=== PATIENT | male | born 1950 | race Caucasian/White ===

== ENCOUNTER 2017-08-19 09:30 | Inpatient (IN) | payer SELFPAY ==
--- NOTE | 2017-08-19 09:55 | EDPHY ---
H & P Stated Complaint: Sent by PCP for evaluation of "enzyme leakage". Time Seen by Provider: 08/19/17 09:55 - Personal History Current Tetanus Diphtheria and Acellular Pertussis (TDAP): Yes - Medical/Surgical History Hx Asthma: No Hx Chronic Respiratory Disease: No Hx Diabetes: No Hx Cardiac Disease: No Hx Renal Disease: No Hx Cirrhosis: No Hx Alcoholism: No Hx HIV/AIDS: No Hx Splenectomy or Spleen Trauma: No Other PMH: Carotid artery DX. Recent "enzyme leakage". - Social History Smoking Status: Former smoker Constitutional: Initial Vital Signs Temperature (C) 37 C 08/19/17 09:37 Heart Rate 74 08/19/17 09:37 Respiratory Rate 18 08/19/17 09:37 Blood Pressure 157/97 H 08/19/17 09:37 O2 Sat (%) 94 08/19/17 09:37 O2 Delivery Mode Room Air Allergies/Adverse Reactions: No Known Allergies Allergy (Unverified 08/19/17 09:41) Home Medications: Medication Instructions Recorded Amlodipine Besylate 08/19/17 Plavix 08/19/17 Medical Decision Making - Diagnostics Imaging: Discussed imaging studies w/ card lacer jacquard Radiologist, I viewed and interpreted images myself ED Course/Re-evaluation: CHIEF COMPLAINT: Elevated BNP and Troponin HISTORY OF PRESENT ILLNESS: The patient is a 67 y/o male with a history of CAD sent here by Dr. Dobson, his dutnua-qc-qds's PCP, for an elevated BNP and Troponin on Tuesday, 3 days ago. While driving to [place] from [place], he began to feel lightheaded, dizzy, and started sweating. On Tuesday, 4 days ago, he was seen at [facility] in [place], [place] and diagnosed with an elevated BNP and Troponin (0.523). They sent him home with an elevated BNP and Troponin. During his follow up visit with Dr. Dobson, she noticed his elevated BNP and Troponin and recommended he present to the ED immediately. However, the patient decided to wait until after Thanksgiving to go to the ED. He has not had any cardiac symptoms since the visit to [facility]. Denies shortness of breath, paresthesias, fever or other pertinent symptoms. REVIEW OF SYSTEMS: A 10 point review of systems was performed and is negative with the exception of the elements mentioned in the history of present illness. PHYSICAL EXAM: HR, BP, O2 Sat, RR. Temp noted General Appearance: Alert, well hydrated, appropriate, and non-toxic appearing. Head: Atraumatic without scalp tenderness or obvious injury Eyes: Pupils equal, round, reactive to light and accommodation, EOMI, no trauma , no injection. Ears: Clear bilaterally, no perforation, normal landmarks Nose: Atraumatic, no rhinorrhea, clear. Throat: Mucus membranes moist. Neck: Supple, nontender, no lymphadenopathy. Respiratory: No retractions, no distress, no wheezes, and no accessory muscle use. Lungs are clear to auscultation bilaterally. Cardiovascular: Regular rate and rhythm, no murmurs, rubs, or gallops. Good capillary refill all extremities. Gastrointestinal: Abdomen is soft, nontender, non-distended, no masses, no rebound, no guarding, no peritoneal signs. Musculoskeletal: Normal active ROM of all extremities, atraumatic. Neurological: Alert, appropriate, and interactive. Non-focal neuro Skin: No rashes, good turgor, no nodules on palpation. Past medical history: Peripheral vascular disease, dyslipidemia, hypertension Past surgical history: Left carotid endarterectomy (2009) Family history: CAD Social history: Family at bedside, visiting from [place], former smoker DIAGNOSTICS/PROCEDURES/CRITICAL CARE TIME: The 12 lead EKG was interpreted by myself sinus rhythm with a rate of 61, no ischemia. See hard copy and/or "tracemaster" electronic copy for interpretation. Echocardiogram: Posterior and inferior wall motion abnormalities I spent a total of 30 minutes of critical care time including but not limited to obtaining history, performing a physical exam, ordering interventions and the bedside monitoring of those interventions, collecting and interpreting tests and discussion with consultants but not including time spent performing procedures. DIFFERENTIAL DIAGNOSIS: The differential diagnosis for the patient's chest pain included but was not limited to myocardial ischemia, pulmonary embolus, chest wall pain, pleural inflammation, and pulmonary infectious causes. MEDICAL DECISION MAKING: The patient is a 67 y/o male with a history of CAD presenting with an elevated BNP and Troponin (0.523) from Tuesday, 4 days ago, after being seen at a hospital in [place], [place]. He went to this hospital after experiencing dizziness and becoming diaphoretic. He is not currently complaining of any cardiac symptoms. 1027: Consulted with Dr. Maiocco, french drawer, who noticed the elevated BNP and Troponin during a follow up visit. She recommended the patient present himself to the ED, however he waited till after Thanksgiving to come to the ED. 1038: Consulted with Dr. Lance, cardiac wine steward/stewardess, who agrees with me that this patient should be admitted for an acute coronary syndrome. The patient should also have an echocardiogram and have his troponin cycled. 1110: Patient's troponin (0.06) is decreasing but is not normal. 1115: Reassessed patient and discussed laboratory and EKG results. I have also informed them of the plan for admission; patient and his family are comfortable with this plan. 1120: Patient has inferior and posterior cardiac wall motion abnormalities on his echo. 1123: Consulted with Dr. Lance regarding the patients labs and echo. The plan to admit is the same; he will catheterize the patient today or tomorrow. 1133: Consulted with hospitalist service, Dr. Brooks accepts admission of this patient. 1151: Consulted with Dr. Brooks regarding the patients admission. - Data Points Laboratory Results: Laboratory Results 08/19/17 10:31 08/19/17 10:31 08/19/17 08/19/17 10:31 10:31 WBC 8.78 10^3/uL 10^3/uL (3.80-9.50) RBC 5.12 10^6/uL 10^6/uL (4.40-6.38) Hgb 16.1 g/dL g/dL (13.7-17.5) Hct 45.4 % % (40.0-51.0) MCV 88.7 fL fL (81.5-99.8) MCH 31.4 pg pg (27.9-34.1) MCHC 35.5 g/dL g/dL (32.4-36.7) RDW 12.9 % % (11.5-15.2) Plt Count 354 10^3/uL 10^3/uL (150-400) MPV 9.2 fL fL (8.7-11.7) Neut % (Auto) 58.6 % % (39.3-74.2) Lymph % (Auto) 29.8 % % (15.0-45.0) [place] % (Auto) 8.5 % % (4.5-13.0) Eos % (Auto) 1.9 % % (0.6-7.6) Baso % (Auto) 0.7 % % (0.3-1.7) Nucleat RBC Rel Count 0.0 % % (0.0-0.2) Absolute Neuts (auto) 5.14 10^3/uL 10^3/uL (1.70-6.50) Absolute Lymphs (auto) 2.62 10^3/uL 10^3/uL (1.00-3.00) Absolute Monos (auto) 0.75 10^3/uL 10^3/uL (0.30-0.80) Absolute Eos (auto) 0.17 10^3/uL 10^3/uL (0.03-0.40) Absolute Basos (auto) 0.06 10^3/uL 10^3/uL (0.02-0.10) Absolute Nucleated RBC 0.00 10^3/uL 10^3/uL (0-0.01) Immature Gran % 0.5 % % (0.0-1.1) Immature Gran # 0.04 10^3/uL 10^3/uL (0.00-0.10) Sodium 141 mEq/L mEq/L (134-144) Potassium 4.3 mEq/L mEq/L (3.5-5.2) Chloride 105 mEq/L mEq/L (97-110) Carbon Dioxide 26 mEq/l mEq/l (22-31) Anion Gap 10 mEq/L mEq/L (8-16) BUN 17 mg/dL mg/dL (7-23) Creatinine 0.9 mg/dL mg/dL (0.7-1.3) Estimated GFR > 60 Glucose 99 mg/dL mg/dL (70-100) Calcium 9.5 mg/dL mg/dL (8.5-10.4) Troponin I 0.058 ng/mL H ng/mL (0.000-0.034) NT-Pro-B Natriuret Pep 1420 pg/mL H pg/mL (0-125) Departure - Departure Disposition: [facility] Clinical Impression: Elevated troponin, Elevated brain natriuretic peptide (BNP) level, Acute coronary syndrome Condition: Fair Report Scribed for: Blue Sadler Report Scribed by: Marybeth Frances Date of Report: 08/19/17 Time of Report: 10:10
--- NOTE | 2017-08-19 10:28 | CPEKG ---
Heart Rate: 61 RR Interval: 984 P-R Interval: 164 QRSD Interval: 80 QT Interval: 424 QTC Interval: 427 P Rowland: 72 QRS Rowland: -50 T Wave Rowland: 92 EKG Severity - ABNORMAL ECG - EKG Impression: SINUS RHYTHM EKG Impression: VENTRICULAR PREMATURE COMPLEX EKG Impression: LEFT ANTERIOR FASCICULAR BLOCK EKG Impression: NONSPECIFIC T ABNORMALITIES, LATERAL LEADS Electronically Signed By: Blue Sadler 19-Aug-2017 14:56:02
[2017-08-19 10:42] LABS: % IMMATURE GRANULYOCYTES 0.5 % (0.0-1.1); ABSOLUTE IMMATURE GRANULOCYTES 0.04 10^3/uL (0.00-0.10); ADD DIFF? NO; ADD MORPH? NO; ADD SCAN? NO; ATYPICAL LYMPHOCYTE FLAG 10 (0-99); FRAGMENT RBC FLAG 0 (0-99); HEMATOCRIT 45.4 % (40.0-51.0); HEMOGLOBIN 16.1 g/dL (13.7-17.5); LEFT SHIFT FLG 0 (0-99); LIPEMIA HEMOLYSIS FLAG 90 (0-99); MEAN CELL HEMOGLOBIN 31.4 pg (27.9-34.1); MEAN CELL HEMOGLOBIN CONCENTR. 35.5 g/dL (32.4-36.7); MEAN CELL VOLUME 88.7 fL (81.5-99.8); MEAN PLATELET VOLUME 9.2 fL (8.7-11.7); PLATELET CLUMPS FLAG 0 (0-99); PLATELET COUNT 354 10^3/uL (150-400); RED BLOOD CELL COUNT 5.12 10^6/uL (4.40-6.38); RED CELL DISTRIBUTION WIDTH 12.9 % (11.5-15.2)
[2017-08-19 10:53] LABS: ANION GAP 10 mEq/L (8-16); CALCIUM 9.5 mg/dL (8.5-10.4); CARBON DIOXIDE 26 mEq/l (22-31); CHLORIDE 105 mEq/L (97-110); CREATININE 0.9 mg/dL (0.7-1.3); GLOMERULAR FILTRATION RATE > 60; GLUCOSE 99 mg/dL (70-100); POTASSIUM 4.3 mEq/L (3.5-5.2); SODIUM 141 mEq/L (134-144)
[2017-08-19 11:04] LABS: TROPONIN I 0.058 ng/mL (0.000-0.034)
[2017-08-19] MEDS ORDERED: ACETAMINOPHEN 325 MG TAB PO PRN (12:20)
[2017-08-19] MEDS ORDERED: ONDANSETRON DISINTEGRATING 4 MG TAB PO PRN (12:20)
[2017-08-19] MEDS ORDERED: ONDANSETRON 4 MG/2 ML VIAL IVP PRN (12:20)
[2017-08-19] MEDS ORDERED: NITROGLYCERIN 0.4 MG BTL SL PRN (12:23)
--- NOTE | 2017-08-19 12:28 | PDGENHP ---
History and Physical - History of Present Illness Drove here from [place] 4 days ago and during the trip began to feel lightheaded and diaphoretic. He stopped the car and had his drove, but they did not go to a hospital. He continued to feel sweaty, but denied chest pain or SOB. No associated nausea. His called EMS and he was transported to [facility]. He had an elevated troponin of 0.523 and an elevated BNP 782 and was told f/u with outpt PCP. He saw his father's PCP, Dr. Dobson, who reviewed his recent hospital records and sent him directly to the ED. However, he opted to wait 2 days and presents today. He continues to deny CP, SOB, nausea, diaphoresis or lightheadedness, though he did feel a bit lightheaded during his blood draw. In the ED, a troponin is 0.05, lower than before. His echo showed wall motion abnormality. Cardiology is consulted and he is admitted to the hospital for further evaluation. History Information - Allergies/Home Medication List Allergies/Adverse Reactions: No Known Allergies Allergy (Unverified 08/19/17 09:41) Home Medications: Clopidogrel Bisulfate [Plavix (*)] 75 mg PO DAILY 08/19/17 [Last Taken 08/18/17] amLODIPine BESYLATE [Norvasc 10 mg (*)] 10 mg PO DAILY 08/19/17 [Last Taken ] I have personally reviewed and updated: family history, medical history, social history, surgical history - Past Medical History hypertension, hyperlipidemia Additional medical history: Echo 2010 nl EF, mild MR - Surgical History Additional surgical history: Left carotid endarterectomy. tonsillectomy - Family History Positive for: CAD, father with history of CAD younger than 55 Additional family history: Father had MN in his 50's - Social History Smoking Status: Former smoker Alcohol Use: Rarely Drug Use: Marijuana Additional social history: , lives in [place], visiting [place]. Retired from [employer]. Uses marijuana daily for aches and pain. Review of Systems Review of Systems: ROS: 10pt was reviewed & negative except for what was stated in HPI & below Physical Exam Physical Exam: Temp Pulse Resp BP Pulse Ox 37 C 60 16 147/87 H 96 08/19/17 09:37 08/19/17 12:12 08/19/17 12:12 08/19/17 12:12 08/19/17 12:12 Constitutional: no apparent distress Eyes: PERRL Ears, Nose, Mouth, Throat: moist mucous membranes Cardiovascular: regular rate and rhythym, no murmur, rub, or gallop Respiratory: no respiratory distress, clear to auscultation Gastrointestinal: normoactive bowel sounds, soft, non-tender abdomen Skin: warm Musculoskeletal: full muscle strength Neurologic: AAOx3 Psychiatric: interacting appropriately Lab Data & Imaging Review 08/19/17 10:31 08/19/17 10:31 WBC 8.78 10^3/uL (3.80-9.50) 08/19/17 10:31 RBC 5.12 10^6/uL (4.40-6.38) 08/19/17 10:31 Hgb 16.1 g/dL (13.7-17.5) 08/19/17 10:31 Hct 45.4 % (40.0-51.0) 08/19/17 10:31 MCV 88.7 fL (81.5-99.8) 08/19/17 10:31 MCH 31.4 pg (27.9-34.1) 08/19/17 10:31 MCHC 35.5 g/dL (32.4-36.7) 08/19/17 10:31 RDW 12.9 % (11.5-15.2) 08/19/17 10:31 Plt Count 354 10^3/uL (150-400) 08/19/17 10:31 MPV 9.2 fL (8.7-11.7) 08/19/17 10:31 Neut % (Auto) 58.6 % (39.3-74.2) 08/19/17 10:31 Lymph % (Auto) 29.8 % (15.0-45.0) 08/19/17 10:31 [place] % (Auto) 8.5 % (4.5-13.0) 08/19/17 10:31 Eos % (Auto) 1.9 % (0.6-7.6) 08/19/17 10:31 Baso % (Auto) 0.7 % (0.3-1.7) 08/19/17 10:31 Nucleat RBC Rel Count 0.0 % (0.0-0.2) 08/19/17 10:31 Absolute Neuts (auto) 5.14 10^3/uL (1.70-6.50) 08/19/17 10:31 Absolute Lymphs (auto) 2.62 10^3/uL (1.00-3.00) 08/19/17 10:31 Absolute Monos (auto) 0.75 10^3/uL (0.30-0.80) 08/19/17 10:31 Absolute Eos (auto) 0.17 10^3/uL (0.03-0.40) 08/19/17 10:31 Absolute Basos (auto) 0.06 10^3/uL (0.02-0.10) 08/19/17 10:31 Absolute Nucleated RBC 0.00 10^3/uL (0-0.01) 08/19/17 10:31 Immature Gran % 0.5 % (0.0-1.1) 08/19/17 10:31 Immature Gran # 0.04 10^3/uL (0.00-0.10) 08/19/17 10:31 Sodium 141 mEq/L (134-144) 08/19/17 10:31 Potassium 4.3 mEq/L (3.5-5.2) 08/19/17 10:31 Chloride 105 mEq/L (97-110) 08/19/17 10:31 Carbon Dioxide 26 mEq/l (22-31) 08/19/17 10:31 Anion Gap 10 mEq/L (8-16) 08/19/17 10:31 BUN 17 mg/dL (7-23) 08/19/17 10:31 Creatinine 0.9 mg/dL (0.7-1.3) 08/19/17 10:31 Estimated GFR > 60 08/19/17 10:31 Glucose 99 mg/dL (70-100) 08/19/17 10:31 Calcium 9.5 mg/dL (8.5-10.4) 08/19/17 10:31 Troponin I 0.058 ng/mL (0.000-0.034) H 08/19/17 10:31 NT-Pro-B Natriuret Pep 1420 pg/mL (0-125) H 08/19/17 10:31 Visualized and Interpreted EKG results: Yes EKG Interpretation: Positive for: normal sinsus rhythm Assessment & Plan Assessment: NSTEMI - This event occurred 4 days ago at which time his trop was 0.52. I reviewed his EKG at that time, which showed some T wave flattening, but no ST elevation. His trop is now down-trending and he is completely asymptomatic, likely at the tail end of his NSTEMI. Discussed with Cards. -Cont plavix -add BB, statin -check lipid status in am -prn ntg, morphine if pain recurs and would repeat EKG stat -NPO at midnight for angiogram in am -cardiology will consult H/O PVD - s/p carotid endarterectomy Hypertension - Favor BB over amlodipine given presumed CAD. Hyperlipidemia - lipid panel in am, start statin given NSTEMI event. Full code DVT PPLX - SCD's for now. Lovenox deferred for am as pt going for angiogram. Dispo - inpt, suspect he'll require >48 hrs hospitalization for ongoing cardiac evaluation in setting of NSTEMI
[2017-08-19 12:53] LABS: INR 1.04 (0.83-1.16); PROTIME(PATIENT) 13.5 SEC (12.0-15.0)
[2017-08-19] MEDS ORDERED: CLOPIDOGREL BISULFATE 75 MG TAB PO SCH (13:09)
--- NOTE | 2017-08-19 13:28 | ECHO ---
[email or web address] [address] [address] Main: [phone] Fax: [email or web address] Echocardiogram Name: JI GIMENEZ MR#: [id number] Study Date: 08/19/2017 Study Time: 11:14 AM Date of : 1950 Age: 67 year(s) Height: 172.7 cm (68 in.) Weight: 74.84 kg (165 lb.) BSA: 1.88 m2 Gender: Male Examination: Echo Indication: Chest Pain Image Quality: Contrast: Requested by: Blue Sadler BP: 124 mmHg/76 mmHg Heart Rate: Rhythm: Indication: Chest Pain Procedure Staff Leather Sprayer: Sofia Todd Reading Physician: Devonte Lance Requesting Provider: Conclusions: Normal size left ventricle. The ejection fraction is estimated to be 50-55 %. LV mid/basal inferolateral and base inferior segments are akinetic.. Trivial mitral valve regurgitation. Mildy calcific NCC of the aortic valve.. Trivial tricuspid valve regurgitation. No pericardial effusion. Measurements: Chambers Valvular Assessment AV/MV Valvular Assessment TV/PV Normal Normal Normal Name Value Range Name Value Range Name Value Range Ao Margarette (MM): 3.4 cm (2.2 cm-3.7 AV Vmax: 0.90 m/s (1 m/s-1.7 cm) m/s) IVSd (2D): 1.0 cm (0.6 cm-1.1 AV maxP mmHg ( - ) cm) MV E Vmax: 0.48 m/s ( - ) LVDd (2D): 5.2 cm (4.2 cm-5.9 MV A Vmax: 0.67 m/s ( - ) cm) MV E/A: 0.72 ( - ) LVDs (2D): 4.3 cm (2.1 cm-4 cm) LVPWd (2D): 1.0 cm (0.6 cm-1 cm) LVEF (BP): 58 % (>=55 %) EF Range: 50-55 % Continued Measurements: Chambers Valvular Assessment AV/MV Name Value Name Value LADs: 3.5 cm MV E/E' Septal: 8.50 Patient: JI GIMENEZ Study Date: 08/19/2017 Page 1 of 2 11:14 AM LADs Lon.1 cm MV E/E' Lateral: 6.00 [place] Area: 12.5 cm2 Findings: Left Ventricle: Normal size left ventricle. The ejection fraction is estimated to be 50-55 %. LV mid/basal inferolateral and base inferior segments are akinetic.. Right Ventricle: Normal size right ventricle. Left Atrium: The left atrium is normal in size. Right Atrium: The right atrium is normal in size. Mitral Valve: The mitral valve is normal in appearance. Trivial mitral valve regurgitation. Aortic Valve: The aortic valve is tri-leaflet. Mildy calcific NCC of the aortic valve.. Tricuspid Valve: The tricuspid valve appears normal. Trivial tricuspid valve regurgitation. Pulmonic Valve: The pulmonic valve is normal in appearance. Trivial to mild pulmonic valve regurgitation. Pericardium: No pericardial effusion. (No Signature Object) Patient: JI GIMENEZ Study Date: 08/19/2017 Page 2 of 2 11:14 AM [id number]
[2017-08-19] MEDS: CLOPIDOGREL BISULFATE 75 MG TAB PO SCH (13:45)
[2017-08-19] MEDS: ATORVASTATIN CALCIUM 40 MG TAB PO SCH (13:46)
--- NOTE | 2017-08-19 13:53 | PDMN ---
Medical Necessity Medical necessity: C/M review: est. > 2 MN LOS for eval and TX of NSTEMI ( occurred 4 days ago), echocardiogram showed wall motion abnormality requiring Cardiology consult, planned cardiac catheterization 08/20/2017, ongoing cardiac monitoring, cardiac evaluation, close monitoring, comorbid hypertension, hyperlipidemia, hx S/P carotid endarterectomy, patient drove from [place] 4 days ago, [facility], patient had elevated troponin, BNP, was told to follow up with PCP by [facility], patient opted to wait 2 days before coming to [facility] ED per H/P.
--- NOTE | 2017-08-19 15:14 | ASMTCMCOM ---
CM Note CM Note Notes: 08/19/2017 Case Management Note Reviewed chart. No case management d/c needs identified d/t pt residency in [place], age, marital status and activity levels prior to admission. There are no PT or OT evals ordered. Case Management d/c poc: anticipating independent d/c when medically stable. Case Management available if needs change. Date Signed: 08/19/2017 03:13 PM Electronically Signed By:Cari Wolfe RN
--- NOTE | 2017-08-19 17:42 | PDPROPOC ---
Sedation Plan of Care Sedation Plan of Care: vital signs stable, mental status noted, patient educated of risks, benefits, alternatives, patient can tolerate sedation ASA Classification: ASA 2 Planned drugs: fentanyl, midazolam Mallampati Score: Class 1 Mallampati Reference Image: Patient passed 3-3-2 rule?: Yes
--- NOTE | 2017-08-19 17:42 | PDHPUP ---
History & Physical Update H&P update statement: This history and physical update is based on an assessment of the patient which was completed after admission or registration (within 24 hours), but prior to the surgery/procedure. H&P update: H&P reviewed & patient examined, no change in patient's condition since H&P completed
--- NOTE | 2017-08-19 18:10 | GCON ---
[f rep st] CONSULTATION CARDIOLOGY CONSULTATION DATE OF CONSULTATION: 08/19/2017 REFERRING PHYSICIAN: Cecilia Brooks MD REASON FOR CONSULTATION: Elevated troponin. HISTORY OF PRESENT ILLNESS: The patient is a 67-year-old male, who is visiting from [place]. He dr robyn out 4 days ago. En route, he began to feel very lightheaded and diaphoretic. He pulled over in [facility] so that he could switch driving responsibilities with his . He laid the seat b ack and continued to have significant lightheadedness and diaphoresis. He denies the presence of any chest discomfort or significant dyspnea. Paramedics were summoned, and he was taken to an emergency room in [place], [place]. There, his troponin was mildly elevated at 0.523. A BNP was also mo destly elevated at 782. He had no acute ischemic changes on his ECG. He was told that there were co ncerns about his cardiac status and that he should be evaluated by his PCP as soon as possible. The patient continued their trip towards [facility]. When he mentioned the episode that occurred during their trip, his father arranged for him to be seen by his PCP, Dr. Dobson. She advised that he should proceed directly to the emergency room here; however, with the holiday approac julia, he opted to wait until today to come in. He has had any recurrent symptoms. PAST CARDIAC HISTORY AND TESTING: He has no history of prior specific cardiac problems. He does hav e vascular disease and underwent a left carotid endarterectomy in 2011. He has hypertension and hype rlipidemia. He is a former heavy smoker. There is apparently an extensive family history of cardiov ascular issues. PAST MEDICAL HISTORY: If no other significant issues in addition to what was mentioned above. MEDICATIONS: His home medications consist of amlodipine and clopidogrel. ALLERGIES: No known drug allergies. FAMILY HISTORY: His father and a brother have had similar peripheral vascular problems; however, the y have also both had coronary artery revascularization procedures. SOCIAL HISTORY: He is . His is with him in the room today. He does not consume signifi cant amounts of alcohol. He is continually physically active with lots of chores and projects. 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 REVIEW OF SYSTEMS: Apart from what was mentioned in the History of Present Illness, a 10-point revie w was negative. PHYSICAL EXAMINATION: VITAL SIGNS: Heart rate in the 80s with sinus rhythm on the monitor. Blood p ressure 131/69. Room air O2 saturation 96%. GENERAL: This is a thin, well-developed male, in no ac tunica-biloxi distress. He is alert and oriented x3. HEAD AND NECK: No scleral icterus. Mucous membranes mo ist. Carotid pulses 2+ without bruits. There is no JVD. CHEST: Lung velazquez clear to auscultation. CARDIAC: Regular rate and rhythm with a normal S1 and S2. There is no murmur or gallop. ABDOMEN: Soft, nontender, nondistended with normal bowel sounds. EXTREMITIES: 2+ pulses and no peripheral edema. An Jules test on the right wrist was normal at less than 5 seconds. ECG: His ECG demonstrates normal sinus rhythm with a single premature ventricular contraction. Ther e are no Q-waves or conduction system disturbances. No ST-T wave abnormalities indicative of ischemi a. LABORATORY STUDIES: Sodium 141, potassium 4.3, BUN and creatinine 17 and 0.9. Troponin levels have come back at 0.058 and 0.047. BNP is 1420. ECHOCARDIOGRAM: His echocardiogram demonstrates normal left ventricular size. Ejection fraction is 50% to 55% with inferolateral and inferobasilar hypokinesis. He has mild aortic valve calcification without stenosis or regurgitation. He has trace mitral and tricuspid regurgitation. IMPRESSION: This is a 67-year-old male with a significant cardiovascular risk profile and previously documented atherosclerotic cardiovascular disease in the form of a significant carotid stenosis whic h was treated surgically several years ago. He presents with somewhat nonspecific symptoms. His tro ponin is minimally elevated and decreased from the level seen several days ago in [facility]. However, his BNP has continued to increase. He does not manifest any significant signs of fluid ove rload. He has preserved left ventricular systolic function but wall motion abnormalities consistent with coronary artery disease. PLAN: Given the patient's high risk profile and echocardiographic findings, he will be scheduled for left heart catheterization via the right radial approach tomorrow. Further diagnostic and therapeut ic decisions await the outcome of that study. /[id number]/MODL
[2017-08-19] MEDS: METOPROLOL TARTRATE 25 MG TAB PO SCH (21:39)
[2017-08-20 05:22] LABS: % IMMATURE GRANULYOCYTES 0.4 % (0.0-1.1); ABSOLUTE IMMATURE GRANULOCYTES 0.04 10^3/uL (0.00-0.10); ADD DIFF? NO; ADD MORPH? NO; ADD SCAN? NO; ATYPICAL LYMPHOCYTE FLAG 0 (0-99); FRAGMENT RBC FLAG 0 (0-99); HEMATOCRIT 45.9 % (40.0-51.0); HEMOGLOBIN 15.5 g/dL (13.7-17.5); LEFT SHIFT FLG 0 (0-99); LIPEMIA HEMOLYSIS FLAG 90 (0-99); MEAN CELL HEMOGLOBIN 30.6 pg (27.9-34.1); MEAN CELL HEMOGLOBIN CONCENTR. 33.8 g/dL (32.4-36.7); MEAN CELL VOLUME 90.7 fL (81.5-99.8); MEAN PLATELET VOLUME 9.7 fL (8.7-11.7); PLATELET CLUMPS FLAG 10 (0-99); PLATELET COUNT 336 10^3/uL (150-400); RED BLOOD CELL COUNT 5.06 10^6/uL (4.40-6.38); RED CELL DISTRIBUTION WIDTH 13.1 % (11.5-15.2)
[2017-08-20 05:32] LABS: ANION GAP 11 mEq/L (8-16); CALCIUM 9.2 mg/dL (8.5-10.4); CARBON DIOXIDE 25 mEq/l (22-31); CHLORIDE 105 mEq/L (97-110); CHOLESTEROL 185 mg/dL (140-220); CHOLESTEROL/HDL RATIO 4.63 RATIO (1.00-4.97); CREATININE 0.9 mg/dL (0.7-1.3); GLOMERULAR FILTRATION RATE > 60; GLUCOSE 88 mg/dL (70-100); HIGH DENSITY LIPOPROTEIN 40 mg/dL (40-65); LDL/HDL RATIO 3.03 RATIO (1.00-3.64); LOW DENSITY LIPOPROTEIN 121 mg/dL (80-100); NON-HIGH DENSITY LIPOPROTEIN 145 mg/dL (90-129); POTASSIUM 4.7 mEq/L (3.5-5.2); SODIUM 141 mEq/L (134-144); TRIGLYCERIDE 121 mg/dL (40-150); VERY LOW DENSITY LIPOPROTEINS 24 mg/dL (8-25)
[2017-08-20 05:46] LABS: APTT 29.8 SEC (23.0-38.0); INR 1.09 (0.83-1.16)
[2017-08-20] MEDS ORDERED: diphenhydrAMINE 25 MG CAP PO ONE ×2 (06:00→09:45)
[2017-08-20] MEDS ORDERED: DIAZEPAM 5 MG TAB PO ONE ×2 (06:00→09:45)
[2017-08-20] MEDS ORDERED: FAMOTIDINE 20 MG TAB PO ONE ×2 (06:00→09:45)
--- NOTE | 2017-08-20 07:55 | CPEKG ---
Heart Rate: 60 RR Interval: 1000 P-R Interval: 172 QRSD Interval: 88 QT Interval: 456 QTC Interval: 456 P Kilgore: 52 QRS [place]: -52 T Wave [place]: 96 EKG Severity - ABNORMAL ECG - EKG Impression: SINUS RHYTHM EKG Impression: LEFT ANTERIOR FASCICULAR BLOCK EKG Impression: NONSPECIFIC T ABNORMALITIES, LATERAL LEADS Electronically Signed By: Allen Merino 20-Aug-2017 09:28:57
[2017-08-20] MEDS: ASPIRIN 325 MG TAB PO SCH (08:21)
[2017-08-20] MEDS: CLOPIDOGREL BISULFATE 75 MG TAB PO SCH (08:21)
[2017-08-20] MEDS: METOPROLOL TARTRATE 25 MG TAB PO SCH ×2 (08:21→20:59)
[2017-08-20] MEDS ORDERED: CLOPIDOGREL BISULFATE 75 MG TAB PO SCH (09:00)
--- NOTE | 2017-08-20 09:37 | PDCARPN ---
Cardiology Progress Note Assessment/Plan: Elevated Troponin- possible recent ACS. No angina. Inferior wall motion abnormality on echo. Cath today. Elevated BNP- overall preserved LVEF on echo. No evidence of volume overload. Monitor volume status. No diuresis for now; possibly after cath. Vascular Disease- h/o Lt CEA. No neuro symptoms. Hypertension- marginally controlled. Depending on cath results, would probably prefer combo of low dose B-blk and JOHN -I. Secondary Prevention- LDL 121; reports h/o musculoskeletal side effects with atorvastatin in the past (back ache). Consider trial of another statin with CoQ-10. Consider PCSK9 inhibitor if intolerant across the class of statins. 08/20/17 09:42 Subjective: No chest pain, dyspnea, or lightheadedness. Reviewed/Discussed With: family Objective: Vital Signs (8 Hrs) Temp Pulse Resp BP Pulse Ox 08/20/17 07:26 36.7 C 66 13 133/69 H 92 08/20/17 04:00 36.6 C 65 12 147/72 H 91 L Intake/Output (24 Hrs) 08/19/17 08/20/17 08/21/17 05:59 05:59 05:59 Intake Total 500 Output Total 350 Balance 150 Intake: Oral (ml) 500 IV Infused (ml) 0 Output: Urine (ml) 350 Urinal 350 Other: Weight 72.257 kg Number of Voids Toilet 1 Urinal 1 Result Diagrams: 08/20/17 04:00 08/20/17 04:00 Cardiac Labs: Cardiac Lab Results (72 Hrs) 08/19/17 08/19/17 20:52 15:33 Troponin I 0.051 H 0.047 H - Physical Exam Constitutional: no apparent distress Eyes: anicteric sclera Ears, Nose, Mouth, Throat: moist mucous membranes Cardiovascular: regular rate and rhythm, no murmurs, no rubs, no gallops Respiratory: clear to auscultate bilat Gastrointestinal: normoactive bowel sounds, no tenderness, no masses Skin: no rashes, no edema Neurologic: AAOx3 Psychiatric: not anxious ICD10 Worksheet Patient Problems: Problems Problem Status Onset Acute coronary syndrome Acute Elevated brain natriuretic peptide (BNP) level Acute Elevated troponin Acute
[2017-08-20] MEDS ORDERED: LIDOCAINE 1% 300 MG/30 ML SDV ONE (10:14)
[2017-08-20] MEDS ORDERED: fentaNYL 100 MCG/2 ML INJ ONE (10:14)
[2017-08-20] MEDS ORDERED: HEPARIN 10,000 UNIT/10 ML MDV ONE (10:15)
[2017-08-20] MEDS ORDERED: IOPAMIDOL (ISOVUE-370) 150 ML BTL IV ONE (10:15)
[2017-08-20] MEDS ORDERED: MIDAZOLAM 2 MG/2 ML VIAL ONE (10:15)
[2017-08-20] MEDS ORDERED: VERAPAMIL 5 MG/2 ML VIAL ONE (10:15)
[2017-08-20] MEDS ORDERED: NITROGLYCERIN 1,500 MCG/15 ML VIAL MISC ONE (11:15)
[2017-08-20] MEDS ORDERED: CLOPIDOGREL BISULFATE 75 MG TAB ONE (11:27)
[2017-08-20] MEDS ORDERED: CLOPIDOGREL BISULFATE 75 MG TAB PO ONE (11:37)
[2017-08-20] MEDS ORDERED: ATROPINE SULFATE 1 MG/10 ML SYR IVP PRN (11:37)
[2017-08-20] MEDS ORDERED: HYDROCODONE/APAP 5/325 TAB PO PRN (11:37)
[2017-08-20] MEDS ORDERED: TEMAZEPAM 15 MG CAP PO PRN (11:37)
[2017-08-20] MEDS ORDERED: ROSUVASTATIN CALCIUM 10 MG TAB PO SCH (11:45)
[2017-08-20] MEDS ORDERED: NS 1,000 ML IV SCH (11:45)
--- NOTE | 2017-08-20 11:46 | PDDXCAT ---
Diagnostic Cath Note - . Date: 08/20/17 Director Of Catering Sales: Natalio Indication: other (ACS with elevated troponin) - Procedure Access: right wrist Procedure: left heart catheterization, coronary angiography, left ventriculogram , other (PCI of Circumflex) - Materials Left Heart Cath size: 5F Left Heart Cath materials: other (Sightseer and Pigtail) - Findings-Left Heart Catheterization LM: Normal. LAD: Minimal irregularities. LCX: Mid-circumflex 90%; o/w minimal irregularities. RCA: Diffuse mild to moderate irregularities less than 30-40%. EDP: 17 mmHg LVEF: 60% Wall motion: Normal. Complications: None. Estimated blood loss: <50ml Closure method: TR Band Assessment: 1) Normal LV systolic function. 2) CAD as described above. 3) Successful PCI of the Circumflex using a single drug coated stent. Intervention: Based on the patient's clinical history and diagnostic angiography, the decision was made to perform PCI of the circumflex. The patient had received 7000 units of intravenous heparin at the beginning of the procedure. An ACT was measured at 354 seconds. A 6 [place] CLS 3.5 guide catheter was advanced to the left main. An Intuition guidewire was advanced to the distal portion of the circumflex. Predilatation of the target lesion in the mid-circumflex was performed using a 2.5 x 12 mm Emerge balloon. A 2.5 x 24 mm Synergy stent was advanced to the target lesion and was deployed at high pressure. Final angiograms demonstrated 0% residual stenosis and CALLI-III flow. Patient Problems: Problems Problem Status Onset Acute coronary syndrome Acute Elevated brain natriuretic peptide (BNP) level Acute Elevated troponin Acute
--- NOTE | 2017-08-20 13:21 | HOSPPROG ---
Hospitalist Progress Note Assessment/Plan: CAD with recent NSTEMI - This event occurred 4 days [employer] at which time his trop was 0.52 at OSH, no intervention performed at that time. I reviewed his EKG from OSH, which showed some T wave flattening, but no ST elevation. His trop is now down-trending and he is completely asymptomatic, likely at the tail end of his NSTEMI. Discussed with Cards. Angiogram today- PCI with ALEXANDER to circumflex this am per Dr. Lance -Cont plavix, ASA -Cont BB, ARB -change statin to rosuvastatin given prior adverse reaction to atorvastatin H/O PVD - s/p carotid endarterectomy Hypertension - Favor BB over amlodipine given presumed CAD. Losartan started as well per cards Hyperlipidemia - LDL 121, statin changed to pravastatin Full code DVT PPLX - SCD's Dispo - cont inpt, possible dc in am Subjective: Pt feels well. Denies CP or SOB. A bit sleepy after sedation meds for cath. Objective: Vital Signs Temp Pulse Resp BP Pulse Ox 36.6 C 51 L 18 115/82 H 95 08/20/17 11:44 08/20/17 11:44 08/20/17 11:44 08/20/17 11:44 08/20/17 11:44 Laboratory Results 08/20/17 04:00 08/20/17 04:00 08/19/17 08/20/17 08/21/17 05:59 05:59 05:59 Intake Total 500 Output Total 350 Balance 150 PT 14.0 SEC (12.0-15.0) 08/20/17 04:00 INR 1.09 (0.83-1.16) 08/20/17 04:00 - Physical Exam Constitutional: no apparent distress Eyes: PERRL Ears, Nose, Mouth, Throat: moist mucous membranes Cardiovascular: regular rate and rhythym Respiratory: no respiratory distress, clear to auscultation Gastrointestinal: normoactive bowel sounds, soft, non-tender abdomen Skin: warm Musculoskeletal: full muscle strength Neurologic: AAOx3 Psychiatric: interacting appropriately ICD10 Worksheet Patient Problems: Problems Problem Status Onset Acute coronary syndrome Acute Elevated brain natriuretic peptide (BNP) level Acute Elevated troponin Acute
--- NOTE | 2017-08-20 14:57 | CPEKG ---
Heart Rate: 56 RR Interval: 1071 P-R Interval: 172 QRSD Interval: 82 QT Interval: 476 QTC Interval: 460 P [place]: 46 QRS [place]: -52 T Wave [place]: 110 EKG Severity - ABNORMAL ECG - EKG Impression: SINUS RHYTHM EKG Impression: LEFT ANTERIOR FASCICULAR BLOCK EKG Impression: NONSPECIFIC T ABNORMALITIES, LATERAL LEADS Electronically Signed By: Hugo Monge 20-Aug-2017 17:48:52
[2017-08-20] MEDS: ATORVASTATIN CALCIUM 40 MG TAB PO SCH (15:55)
[2017-08-20] MEDS: LOSARTAN POTASSIUM 25 MG TAB PO SCH (16:29)
[2017-08-21 05:21] LABS: % IMMATURE GRANULYOCYTES 0.5 % (0.0-1.1); ABSOLUTE IMMATURE GRANULOCYTES 0.07 10^3/uL (0.00-0.10); ADD DIFF? NO; ADD MORPH? NO; ADD SCAN? NO; ATYPICAL LYMPHOCYTE FLAG 0 (0-99); FRAGMENT RBC FLAG 0 (0-99); HEMATOCRIT 42.2 % (40.0-51.0); HEMOGLOBIN 14.9 g/dL (13.7-17.5); LEFT SHIFT FLG 0 (0-99); LIPEMIA HEMOLYSIS FLAG 90 (0-99); MEAN CELL HEMOGLOBIN 31.7 pg (27.9-34.1); MEAN CELL HEMOGLOBIN CONCENTR. 35.3 g/dL (32.4-36.7); MEAN CELL VOLUME 89.8 fL (81.5-99.8); MEAN PLATELET VOLUME 9.2 fL (8.7-11.7); PLATELET CLUMPS FLAG 0 (0-99); PLATELET COUNT 329 10^3/uL (150-400); RED CELL DISTRIBUTION WIDTH 13.2 % (11.5-15.2)
[2017-08-21 05:37] LABS: ALBUMIN 3.3 g/dL (3.5-5.0); ANION GAP 10 mEq/L (8-16); ASPARTATE AMINOTRANSFERASE 17 IU/L (17-59); BILIRUBIN,TOTAL 0.6 mg/dL (0.1-1.4); CALCIUM 8.9 mg/dL (8.5-10.4); CARBON DIOXIDE 26 mEq/l (22-31); CHLORIDE 105 mEq/L (97-110); CREATININE 0.9 mg/dL (0.7-1.3); GLOMERULAR FILTRATION RATE > 60; GLUCOSE 98 mg/dL (70-100); LACTATE DEHYDROGENASE 334 IU/L (313-618); POTASSIUM 4.2 mEq/L (3.5-5.2); SODIUM 141 mEq/L (134-144)
[2017-08-21 06:28] VITALS: O2SAT 95
[2017-08-21 08:22] VITALS: BP 125/84; PULSE 77; RESP 18; TEMP 98.7
--- NOTE | 2017-08-21 08:27 | CPEKG ---
Heart Rate: 65 RR Interval: 923 P-R Interval: 164 QRSD Interval: 80 QT Interval: 432 QTC Interval: 450 P [place]: 73 QRS [place]: -55 T Wave [place]: 107 EKG Severity - ABNORMAL ECG - EKG Impression: SINUS RHYTHM EKG Impression: LEFT ANTERIOR FASCICULAR BLOCK EKG Impression: NONSPECIFIC T ABNORMALITIES, LATERAL LEADS Electronically Signed By: Allen Merino 21-Aug-2017 08:36:26
[2017-08-21] MEDS: LOSARTAN POTASSIUM 25 MG TAB PO SCH (08:55)
[2017-08-21] MEDS: ASPIRIN 325 MG TAB PO SCH (08:55)
[2017-08-21] MEDS: CLOPIDOGREL BISULFATE 75 MG TAB PO SCH (08:56)
[2017-08-21] MEDS: METOPROLOL TARTRATE 25 MG TAB PO SCH (08:56)
[2017-08-21] MEDS ORDERED: ROSUVASTATIN CALCIUM 10 MG TAB PO SCH (09:00)
--- NOTE | 2017-08-21 11:50 | GDS ---
[f rep st] DISCHARGE SUMMARY REASON FOR ADMISSION: Recent acute coronary syndrome. HOSPITAL COURSE: Please refer to the dictated history and physical by Dr. Brooks from the [facility] service. Also, refer to my dictated Cardiology consultation and cardiac tutorial laboratory supervisor procedure report . Briefly, the patient is a 67-year-old male with a history of vascular disease characterized by a p rior left carotid endarterectomy. He was traveling from [place] to [place] for the s[place] when he experienced profound lightheadedness and diaphoresis. He was evaluated at an emergency room in the [facility]. There, his troponin was mildly elevated at 0.55. He did no t report any chest discomfort and had no ECG changes. He was discharged from the emergency room and continued his trip to the [facility]. His father arranged for him to be seen Tuesday, , by his PCP. The recommendation at that time was for him to present immediately to the emerge ncy room. However, the patient preferred to wait until after . On August 19, he prese nted to the emergency room. He had not experienced any recurrent symptoms. His troponin had decreas ed to 0.05. Based on his history and presentation, the decision was made to perform cardiac catheter ization. That study demonstrated normal left ventricular systolic function, mild atherosclerosis of the left anterior descending and circumflex, and a high-grade stenosis in the midportion of the circu mflex. He underwent PCI with placement of a 2.5 x 24 mm Synergy stent. The angiographic outcome was excellent. Overnight, he has had no complications at his right radial catheterization site. He is stable and ready for discharge. RECOMMENDATIONS AND DISPOSITION: The patient is discharged in stable condition. He should continue to follow a heart healthy diet. Regular physical activity is recommended. With respect to his medic ations, he will continue the Plavix that he has been taking chronically. He will initiate low-dose a spirin daily. In 12 months, he may choose to remain on single anti-platelet therapy in the form of e ither aspirin or Plavix. The amlodipine, that he was taking previously for hypertension, has been di scontinued. It will be replaced by losartan 25 mg daily and metoprolol 25 mg twice daily. He had pr eviously taken atorvastatin, but developed musculoskeletal back pain. We will try him on rosuvastati n 10 mg daily. He should follow up with his PCP and his fortune teller soon after returning home to [facility]. During this hospital encounter, his total cholesterol was 185 with HDL 40, LDL 121, and trig lycerides 121. DISCHARGE DIAGNOSES: 1. Acute coronary syndrome. 2. Coronary artery disease. 3. Hypertension. 4. Successful PCI of the circumflex using a single drug-coated stent. /[id number]/MODL
--- NOTE | 2017-08-21 12:25 | ASDISCHSUM ---
Discharge Information Plan Status:Home with No Needs Medically Cleared to Leave:08/20/2017 Discharge Date:08/21/2017 11:50 AM CM D/C Disposition:Home, Routine, Self-Care ADT D/C Disposition:Home, Routine, Self-Care Projected Discharge Date:08/21/2017 12:00 PM Transportation at D/C:Family Discharge Delay Reason: Follow-Up Date:08/21/2017 12:00 PM Discharge Slot: Final Diagnosis:ACS Placement Information Patient Contact Information Contact Name:LAKHWINDER Relationship: Address: Work Phone: City: [facility] Phone: [facility]/[place] Mobile Code: Email: Financial Information Financial Class: Primary Plan Desc:MEDICARE OUTPATIENT Primary Plan Number:[id number] Secondary Plan Desc: Secondary Plan Number: Assessment Information [facility] CM Progress Note CM Note CM Note Notes: 08/19/2017 Case Management Note Reviewed chart. No case management d/c needs identified d/t pt residency in [place], age, marital status and activity levels prior to admission. There are no PT or OT evals ordered. Case Management d/c poc: anticipating independent d/c when medically stable. Case Management available if needs change. Date Signed: 08/19/2017 03:13 PM Electronically Signed By:Cari Wolfe RN Case Management Discharge Plan Note Case Management Discharge Discharge Order Complete? Answers: Yes Patient to Obtain Answers: via Family Medications Transportation Arranged Answers: Family/Friends Transport will Pick (Date 08/21/2017 12:00 PM & Time) Discharge Comments Notes: Patient discharged home, no needs Date Signed: 08/21/2017 11:52 AM Electronically Signed By:Hollie Tolentino LCSW Intervention Information
[2017-08-22] MEDS ORDERED: ASPIRIN 81 MG CHEWABLE TAB PO SCH (09:00)
== END 2017-08-21 11:50 | disposition home or self-care (01) | DRG 247 ==
LOC: OBSVTOIN 11:44 → F2W 12:22
PROVIDERS: ADMIT Hospitalist; ATTEND Internal Medicine Interventional Cardiology
DX: I24.9 Acute ischemic heart disease, unspecified (principal); I25.10 Atherosclerotic heart disease of native coronary artery without angina pectoris; I10 Essential (primary) hypertension; E78.5 Hyperlipidemia, unspecified; Z79.02 Long term (current) use of antithrombotics/antiplatelets; Z82.49 Family history of ischemic heart disease and other diseases of the circulatory system; Z87.891 Personal history of nicotine dependence
CPT/HCPCS: C1725; C1769; C1874; C1887; C9600; J1644; J2250; J3010; Q9967

== ENCOUNTER 2017-12-26 14:08 | Observation (INO) | payer OTHER ==
--- NOTE | 2017-12-26 14:22 | CPEKG ---
Heart Rate: 61 RR Interval: 984 P-R Interval: 168 QRSD Interval: 86 QT Interval: 420 QTC Interval: 423 P [place]: 54 QRS [place]: -45 T Wave [place]: 100 EKG Severity - ABNORMAL ECG - EKG Impression: SINUS RHYTHM EKG Impression: LAD, CONSIDER LEFT ANTERIOR FASCICULAR BLOCK EKG Impression: NONSPECIFIC T ABNORMALITIES, LATERAL LEADS Electronically Signed By: Jennifer Vasquez 26-Dec-2017 20:33:59
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
[2017-12-26] MEDS ORDERED: NS 1,000 ML IV ONE (14:35)
[2017-12-26 14:43] LABS: PLATELET COUNT 282 10^3/uL (150-400)
--- NOTE | 2017-12-26 14:52 | CPEKG ---
Heart Rate: 55 RR Interval: 1091 P-R Interval: 184 QRSD Interval: 78 QT Interval: 420 QTC Interval: 402 P [place]: 53 QRS [place]: -47 T Wave [place]: 238 EKG Severity - ABNORMAL ECG - EKG Impression: SINUS RHYTHM EKG Impression: LAD, CONSIDER LEFT ANTERIOR FASCICULAR BLOCK Electronically Signed By: Jennifer Vasquez 26-Dec-2017 20:33:22
[2017-12-26] MEDS ORDERED: ONDANSETRON 4 MG/2 ML VIAL IVP PRN (17:21)
[2017-12-26] MEDS ORDERED: ACETAMINOPHEN 325 MG TAB PO PRN (17:21)
[2017-12-26] MEDS ORDERED: NS 1,000 ML IV SCH (17:30)
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
[2017-12-26] MEDS ORDERED: ATROPINE SULFATE 1 MG/10 ML SYR ONE (22:11)
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
[2017-12-27 06:25] LABS: PLATELET COUNT 249 10^3/uL (150-400)
[2017-12-27] MEDS ORDERED: ASPIRIN 81 MG CHEWABLE TAB PO SCH (09:00)
[2017-12-27] MEDS ORDERED: CLOPIDOGREL BISULFATE 75 MG TAB PO SCH (09:00)
[2017-12-27] MEDS ORDERED: ROSUVASTATIN CALCIUM 10 MG TAB PO SCH (09:00)
[2017-12-27] MEDS ORDERED: ENOXAPARIN 40 MG/0.4 ML SYR SC SCH (09:00)
[2017-12-27] MEDS ORDERED: LOSARTAN POTASSIUM 25 MG TAB PO SCH (09:00)
--- NOTE | 2017-12-27 12:27 | PDCARST ---
CAR Stress Test Results Type of Stress Test: Nuclear TM stress test Indication: syncope Description of Procedure: After informed consent was obtained, pt was exercised according to Lakhwinder Protocol. Monitoring was performed with standard stress oil gas and pipe tester electrode placement. Vital signs were monitored according to protocol throughout the procedure. STRESS EKG AND HEMODYNAMIC DATA. Exercise time: 6 min. This is equivalent to: 6.9 METS. Resting heart rate: 63 bpm. Resting blood pressure: mmHg. Resting O2 saturation: %. Peak heart rate: 159 bpm. This is 102% of age predicted maximum heart rate response. Peak blood pressure: 200/86 mmHg. Exercise O2: 95 % 1 lpm. Arrhythmias: Baseline - PVCs occasional; Exercise - occasional PVCs; Recovery - occasional PACs and PVCs. Reason for termination: The test was stopped due to maximal exertion. Symptoms: The patient experienced no typical symptoms of angina during stress or recovery. STRESS TEST ANALYSIS. Baseline ECG: SR with 1 PVC and duffuse T wave flattening. Stress ECG: SR with 1 mm upsloping STD. Rhythm: Occasional PVCs noted during exercise and recovery. Blood pressure: Normal blood pressure at rest and hypertensive blood pressure response to exercise. Exercise tolerance: The patient has normal exercise tolerance adjusted for age and gender. Symptoms: No exercise induced symptoms. IMPRESSIONS: Stress ECG negative for ischemia. The Louis Treadmill Score is +6, consistent with low cardiovascular risk (<1% annual mortality). Impression: DTS: +6; mildly hypertensive blood pressure response to exercise. Conclusion: Await nuclear images.
--- NOTE | 2017-12-27 14:52 | ECHO ---
[email or web address] [id number] Main: [phone] Fax: Transthoracic Echocardiogram Name: JI GIMENEZ MR#: [id number] Study Date: 12/27/2017 Study Time: 09:24 AM Date of : 1950 Age: 67 year(s) Height: 177.8 cm (70 in.) Weight: 81.65 kg (180 lb.) BSA: 2 m2 Gender: Male Examination: Limited Echo Indication: Syncope/hx stent Image Quality: Contrast: Requested by: Ivett Moreno BP: 130 mmHg/81 mmHg Heart Rate: Rhythm: Indication: Syncope/hx stent Procedure Staff Auto Transmission Technician: Sofia Todd RDCS Reading Physician: Edel Maynard MD Requesting Provider: Conclusions: The ejection fraction is estimated to be 50-55 %. LV basal inferior/inferolateral bobby are hypo/akinetic. All remaining LV segments have normal motion.. Similar findings compared with 07/2017 Measurements: Chambers Valvular Assessment AV/MV Valvular Assessment TV/PV Normal Normal Normal Name Value Range Name Value Range Name Value Range EF Range: 50-55 % Continued Measurements: Findings: Left Ventricle: The ejection fraction is estimated to be 50-55 %. LV basal inferior/inferolateral bobby are hypo/akinetic. All remaining LV segments have normal motion.. (No Signature Object) Patient: JI GIMENEZ Study Date: 12/27/2017 Page 1 of 1 09:24 AM [id number]
--- NOTE | 2017-12-27 15:47 | ASMTCMCOM ---
CM Note CM Note Notes: 12/27/2017 Case Management Note Discussed case during multidisciplinary rounds this morning. There are no case management d/c needs identified d/t pt age, activity levels prior to admission and marital status. Case Management d/c poc: home independent with follow up as directed. Case Management to follow. Date Signed: 12/27/2017 03:47 PM Electronically Signed By:Cari Wolfe RN
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
[2017-12-27 16:12] VITALS: BP 137/74; PULSE 75; RESP 18; TEMP 98.2; O2SAT 95
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
[2017-12-28] MEDS ORDERED: LOSARTAN POTASSIUM 50 MG TAB PO SCH (09:00)
[2017-12-28] MEDS ORDERED: ENOXAPARIN 40 MG/0.4 ML SYR SC SCH (09:00)
== END 2017-12-27 18:45 | disposition home or self-care (01) ==
LOC: INTOOBSV 14:59 → F2W 16:48
PROVIDERS: ADMIT Internal Medicine; ATTEND Internal Medicine
DX: R55 Syncope and collapse (principal); I77.1 Stricture of artery; I10 Essential (primary) hypertension; Z86.79 Personal history of other diseases of the circulatory system; Z87.891 Personal history of nicotine dependence
CPT/HCPCS: 70450; 71045; 78452; 93005; 93017; 93308; 93880; A9500; G0378; J0461